=== PATIENT | male | born 1980 | race Caucasian/White ===

== ENCOUNTER 2016-06-30 22:11 | Emergency (ER) | payer MEDICAID, OTHER ==
--- NOTE | 2016-07-01 00:36 | C.PDOC ---
History Of Present Illness Patient presents to the ED complaining of intermittent chest pain for the last few days. patient states he visited his PMD recently, had an EKG done, and was told it was normal. Patient now complains of numbness over both forearms. He denies any weakness, palpitations, vision change, slurred speech, fever, chills , nausea or vomiting. Time Seen by Provider: 07/01/16 00:35 Chief Complaint (Nursing): Chest Pain History Per: Patient History/Exam Limitations: no limitations Onset/Duration Of Symptoms: Days (couple) Current Symptoms Are (Timing): Still Present Context: Other Severity: Mild Pain Scale Rating Of: 3 Quality: "Pain" Exacerbating Factors: None Alleviating Factors: None Recent travel outside of the [place]: No Past Medical History Reviewed: Historical Data, Nursing Documentation, Vital Signs Vital Signs: Last Vital Signs Temp 97.9 F 06/30/16 22:19 Pulse 84 06/30/16 22:19 Resp 18 06/30/16 22:19 BP 153/91 H 06/30/16 22:19 Pulse Ox 99 07/01/16 01:39 Family History: States: Unknown Family Hx - Social History Hx Tobacco Use: No Hx Alcohol Use: Yes Hx Substance Use: No - Immunization History Hx Tetanus Toxoid Vaccination: Yes Hx Influenza Vaccination: No Hx Pneumococcal Vaccination: No Review Of Systems Except As Marked, All Systems Reviewed And Found Negative. Constitutional: Negative for: Fever, Chills Eyes: Negative for: Vision Change Cardiovascular: Positive for: Chest Pain. Negative for: Palpitations Gastrointestinal: Negative for: Nausea, Vomiting Neurological: Positive for: Numbness. Negative for: Weakness, Change in Speech Physical Exam - Physical Exam Appears: Non-toxic, No Acute Distress Skin: Warm, Dry Head: Atraumatic, Normacephalic Eye(s): bilateral: PERRL, EOMI Oral Mucosa: Moist Neck: Supple Chest: Symmetrical Cardiovascular: Rhythm Regular Respiratory: Normal Breath Sounds, No Rales, No Rhonchi, No Wheezing Gastrointestinal/Abdominal: Soft, No Tenderness Back: No CVA Tenderness Extremity: Bilateral: Atraumatic, Normal Color And Temperature Neurological/Psych: Oriented x3, Normal Motor, Normal Sensation Gait: Steady ED Course And Treatment - Laboratory Results Result Diagrams: 07/01/16 01:02 07/01/16 01:02 ECG: Interpreted By Me, Viewed By Me ECG Rhythm: Sinus Rhythm (86) O2 Sat by Pulse Oximetry: 99 (RA) Pulse Ox Interpretation: Normal - Radiology CXR: Interpreted by Me, Viewed By Me CXR Interpretation: No: Infiltrates, Fracture, Pnemothorax - CT Scan/US Head CT Other Rad Studies (CT/US): Read By Radiologist (Manuela Alcantara MD), Radiology Report Reviewed CT/US Interpretation: EXAM: CT Head Without Intravenous Contrast. CLINICAL HISTORY: 35 years old, male; Signs and symptoms; Numbness / parasthesia; Left; Additional info: Paresthisia. TECHNIQUE: Axial computed tomography images of the head/brain without intravenous contrast. This CT exam. was performed using one or more of the following dose reduction techniques: automated exposure. control, adjustment of the mA and/or kV according to patient size, and/or use of iterative. reconstruction technique. EXAM DATE/TIME: 07/01/2016 12:39 AM. COMPARISON: There are no prior studies for comparison. FINDINGS: Brain: Ventricles are normal in size and configuration. There is no midline shift. There are no intraaxial. or extra-axial mass lesions or areas of hemorrhage. There are no abnormal fluid collections. Olivarez-white differentiation is maintained. Ventricles: See above. Bones: Cranial vault is intact. Soft tissues: unremarkable. Sinuses: There is no acute sinusitis. Ears and mastoids : Middle ears and mastoids are unremarkable. Orbits: Orbital contents are unremarkable. IMPRESSION: No intracranial abnormality C-spine CT Other Rad Studies (CT/US): Read By Radiologist (Manuela Alcantara MD), Radiology Report Reviewed CT/US Interpretation: EXAM: CT Cervical Spine Without Intravenous Contrast. CLINICAL HISTORY: 35 years old, male; Signs and symptoms; Numbness; Additional info: Paresthisia hands. TECHNIQUE: Axial computed tomography images of the cervical spine without intravenous contrast. This CT. exam was performed using one or more of the following dose reduction techniques: automated. exposure control, adjustment of the mA and/or kV according to patient size, and/or use of iterative. reconstruction technique. Coronal and sagittal reformatted images were created and reviewed. EXAM DATE/TIME: 07/01/2016 12:39 AM. COMPARISON: There are no prior studies for comparison. FINDINGS: Artifacts: Motion artifact degrades image quality.Streak artifact degrades image quality. Vertebrae: There is straightening of the cervical lordosis. There is no prevertebral soft tissue. swelling. There are no fractures or alignment abnormalities. Disc spaces are maintained. Facet joints. align anatomically. Spinous processes align in the expected fashion. Discs/spinal canal/neural foramina: see above. Soft tissues: See above. Lymph nodes: There is shotty adenopathy. Thyroid: Thyroid is unremarkable. Lung apices: Lung apices are clear. Other findings: Airway is unremarkable. IMPRESSION: No fracture Progress Note: Plan: C-Spine CT, Head CT, Labs, EKG, Chest x-ray, Ecotrin. Upon provider reevaluation patient is feeling better, is medically stable, and requires no further treatment in the ED at this time. Patient will be discharged home . Counseling was provided and all questions were answered regarding diagnosis and need for follow up with Dr garcia. There is agreement to discharge plan. Return if symptoms persist or worsen. Reevaluation Time: 02:23 Reassessment Condition: Improved Medical Decision Making Medical Decision Making: I considered the following diagnoses: acute coronary syndrome, pulmonary embolism, lower respiratory infection, aortic dissection/aneurysm, pneumothorax , pericarditis, esophagitis/GERD, zoster and esophageal rupture but found them to be unlikely based on the history, physical exam, and diagnostics. My conclusions regarding the unlikely diagnoses were based on: the absence of significant EKG abnormalities, the lack of suggestive x-ray findings, the absence of significant abnormalities on cardiac monitoring, the absence of asymmetric pulses, Disposition Counseled Patient/Family Regarding: Studies Performed, Diagnosis, Need For Followup - Disposition Referrals: Zo Garcia MD [Staff Provider] - Disposition: HOME/ ROUTINE Disposition Time: 00:35 Condition: FAIR Additional Instructions: Please return if symptoms recur Instructions: Chest Pain (DC), Paresthesia (ED) - Clinical Impression Clinical Impression: Chest pain, Paresthesia - Scribe Statement The provider has reviewed the documentation as recorded by the Scribcelina Higginbotham Provider Attestation: All medical record entries made by the Scribe were at my direction and personally dictated by me. I have reviewed the chart and agree that the record accurately reflects my personal performance of the history, physical exam, medical decision making, and the department course for this patient. I have also personally directed, reviewed, and agree with the discharge instructions and disposition.
[2016-07-01] MEDS ORDERED: Aspirin 325 mg EC Tablets PO STA (00:39)
[2016-07-01 01:10] LABS: BASO # 0.1 K/uL (0.0-0.2); BASO % 0.9 % (0.0-2.0); EOS # 0.4 K/uL (0.0-0.7); EOS % 3.5 % (0.0-4.0); HEMATOCRIT 43.5 % (35.0-51.0); LYMPH % 30.6 % (20.0-40.0); MEAN CELL VOLUME 80.5 fL (80.0-94.0); MEAN CORPUSCULAR HEMOGLOBIN 26.4 pg (27.0-31.0); MEAN CORPUSCULAR HGB CONC 32.8 g/dL (33.0-37.0); MEAN PLATELET VOLUME 9.1 fL (7.2-11.7); MONO # 0.8 K/uL (0.0-0.8); MONO % 7.6 % (0.0-10.0); RED CELL DISTRIBUTION WIDTH 13.3 % (11.5-14.5)
[2016-07-01 01:18] LABS: CHLORIDE 99 mmol/L (98-107)
[2016-07-01 01:19] LABS: POTASSIUM 3.7 mmol/L (3.6-5.2); SODIUM 138 mmol/L (132-148)
[2016-07-01 01:21] LABS: ALB/GLOB RATIO 1.1 (1.0-2.1); ALKALINE PHOSPHATASE 59 U/L (38-126); AST/SGOT 45 U/L (17-59); BILIRUBIN,TOTAL 0.3 mg/dL (0.2-1.3); CARBON DIOXIDE 27 mmol/L (22-30); GFR AFRICAN-AMERICAN > 60; TOTAL PROTEIN 7.2 g/dL (6.3-8.3)
[2016-07-01 01:22] LABS: ALT/SGPT 60 U/L (21-72); BLOOD UREA NITROGEN 14 mg/dL (9-20); CALCIUM 8.5 mg/dl (8.6-10.4); GLUCOSE,RANDOM 83 mg/dL (75-110)
[2016-07-01 01:23] LABS: RBC URINE 2 /hpf (0-3); URINE BACTERIA RARE (<OCC); URINE BILIRUBIN NEGATIVE (NEGATIVE); URINE BLOOD NEGATIVE (NEGATIVE); URINE COLOR Yellow (YELLOW); URINE GLUCOSE (UA) NORMAL (Normal); URINE KETONE NEGATIVE (NEGATIVE); URINE LEUKOCYTE ESTERASE NEG Leu/uL (Negative); URINE PROTEIN NEGATIVE (NEGATIVE); URINE UROBILINOGEN NORMAL mg/dL (0.2-1.0); WBC URINE 3 /hpf (0-5)
[2016-07-01 02:34] VITALS: BP 125/78; PULSE 83; RESP 16; TEMP 97.8; O2SAT 100
--- NOTE | 2016-07-01 08:07 | CT ---
PROCEDURE: CT HEAD WITHOUT CONTRAST. HISTORY: Paresthesia. COMPARISON: None available. TECHNIQUE: Axial computed tomography images were obtained through the head/brain without intravenous contrast. Radiation dose: Total exam DLP = 943 mGy-cm. This CT exam was performed using one or more of the following dose reduction techniques: Automated exposure control, adjustment of the mA and/or kV according to patient size, and/or use of iterative reconstruction technique. FINDINGS: HEMORRHAGE: No intracranial hemorrhage. BRAIN: No mass effect or edema. No atrophy or chronic microvascular ischemic changes. VENTRICLES: Unremarkable. No hydrocephalus. CALVARIUM: Unremarkable. PARANASAL SINUSES: Unremarkable as visualized. No significant inflammatory changes. MASTOID AIR CELLS: Unremarkable as visualized. No inflammatory changes. OTHER FINDINGS: None. IMPRESSION: No acute intracranial abnormality. If focal neurologic deficit persists, consider MRI. These findings were preliminarily reported at 1:31 a.m. on 07/01/[address] Manuela Braswell from [facility].
--- NOTE | 2016-07-01 08:16 | CT ---
PROCEDURE: CT Cervical Spine without contrast HISTORY: Paresthesia. Neck pain. COMPARISON: None available. TECHNIQUE: Axial computed tomography images were obtained of the cervical spine without the use of intravenous contrast. Coronal and sagittal reformatted images were created and reviewed. Radiation dose: Total exam DLP = 654 mGy-cm. This CT exam was performed using one or more of the following dose reduction techniques: Automated exposure control, adjustment of the mA and/or kV according to patient size, and/or use of iterative reconstruction technique. FINDINGS: VERTEBRAE: Straightening of the normal cervical lordosis. No prevertebral soft tissue swelling. No acute displaced fracture or dislocation. Small accessory ossicle versus small heterotopic bone formation seen adjacent to the right lateral transverse process of the T1 vertebral body. Curvilinear lucency through the right aspect of the base of the C2 vertebral body on series 2, image 72 likely represents a vascular groove. DISCS/SPINAL CANAL/NEURAL FORAMINA: Suggestion of a small posterior disc osteophyte complex at the C6-7 level. This would be better evaluated with MRI. PARASPINAL SOFT TISSUES: Unremarkable. OTHER FINDINGS: Motion artifact degrades image quality. Streak artifact degrades image quality. Sclerosis at the atlantodental interval. Shotty lymph nodes noted. Mild mucosal thickening of the right maxillary sinus. IMPRESSION: Negative acute. Degenerative changes. If pain persists, consider further evaluation with MRI. These findings were preliminarily reported at 1:37 a.m. on 07/01/[address] Manuela Braswell from [facility].
--- NOTE | 2016-07-01 08:41 | RAD ---
PROCEDURE: CHEST RADIOGRAPH, 1 VIEW HISTORY: chest pain COMPARISON: None available. FINDINGS: LUNGS: Clear. PLEURA: No pneumothorax or pleural fluid seen. CARDIOVASCULAR: Normal. OSSEOUS STRUCTURES: No significant abnormalities. VISUALIZED UPPER ABDOMEN: Normal. OTHER FINDINGS: None. IMPRESSION: No active disease.
--- NOTE | 2016-07-01 18:54 | CARD ---
APPROVED REPORT EKG Measurement Heart [id number] <Conclusion> Normal sinus rhythm Normal ECG
== END 2016-07-01 02:34 | disposition home or self-care (01) ==
LOC: C.ER 22:11
DX: R07.9 Chest pain, unspecified (principal); R20.2 Paresthesia of skin